=== PATIENT | female | born 1980 | race Two or more races ===

== ENCOUNTER 2017-05-24 16:39 | Emergency (ER) | payer OTHER ==
[~2017-05-24] VITALS: Ht 157.5 cm; Wt 82.2 kg
[~2017-05-24 16:39] MED LIST: ALBU2TAB4 IN; ALBU2TAB4 NEB; LEVO500T21 PO
[2017-05-24 18:03] LABS: Basophils # (auto) 0.1 uL; Basophils % (auto) 0.8 % (0.0-2.0); Eosinophils # (auto) 0.2 uL; Eosinophils % (auto) 1.9 % (0.0-7.0); Hematocrit 40.5 % (36.0-46.0); Hemoglobin 13.7 g/dL (12.2-16.2); Lymphocytes # (auto) 2.3 uL; Lymphocytes % (auto) 23.4 % (10.0-50.0); Mean Corpuscular Hemoglobin 27.5 pg (28.0-32.0); Mean Corpuscular Hgb Conc. 33.9 g/dL (32.0-36.0); Mean Platelet Volume 7.8 fL (6.9-10.8); Monocytes # (auto) 0.5 uL; Monocytes % (auto) 4.9 % (0.0-12.0); Neutrophils # (auto) 6.8 uL; Nucleated Red Blood Cells % 0.1 %; Platelet Count (auto) 300 10^3/uL (140-450); Red Cell Distribution Width 14.4 % (11.8-14.3); White Blood Cell 9.8 10^3/uL (4.4-10.8)
[2017-05-24 18:07] LABS: Chloride 106 mmol/L (98-107); Potassium 3.2 mmol/L (3.5-5.1); Sodium 138 mmol/L (136-145)
[2017-05-24 18:11] LABS: Albumin 3.7 g/dL (3.4-5.0); Anion Gap 7 (5-15); Aspartate Aminotransferase 18 U/L (15-37); BUN/Creatinine Ratio 15.9; Blood Urea Nitrogen 11 mg/dL (7-18); Calcium 8.4 mg/dL (8.5-10.1); Carbon Dioxide 25 mmol/L (21-32); GFR African American 124 mL/min; GFR Non-African American 102 mL/min; Glucose 78 mg/dL (74-106); Magnesium 2.3 mg/dL (1.6-2.6)
[2017-05-24 18:17] LABS: Alkaline Phosphatase 71 U/L (45-117); Bilirubin, Total 0.6 mg/dL (0.2-1.0)
[2017-05-24 18:18] LABS: Total Protein 7.6 g/dL (6.4-8.2)
[2017-05-24 18:21] VITALS: BP 122/86
[2017-05-24] MEDS ORDERED: POTASSIUM CHL 20 Meq TABLET PO ONE (18:45)
== END 2017-05-24 19:28 | disposition home or self-care (01) ==
LOC: ER 16:45
DX: R07.89 Other chest pain (principal); E87.6 Hypokalemia; J45.909 Unspecified asthma, uncomplicated; Z88.6 Allergy status to analgesic agent; Z91.018 Allergy to other foods; Z91.09 Other allergy status, other than to drugs and biological substances
CPT/HCPCS: 36415; 71020; 80053; 83735; 84484; 85025; 93005

== ENCOUNTER 2018-04-15 16:13 | Emergency (ER) | payer MEDICAID ==
[~2018-04-15] VITALS: Ht 160 cm; Wt 76.2 kg
[2018-04-15 16:23] VITALS: BP 137/94
[2018-04-15] MEDS ORDERED: cefTRIAXone SOD 1,000 MG VL IM ONE (17:00)
[2018-04-15] MEDS ORDERED: ALBUTEROL SULF 2.5 MG/0.5ML(0.5%) NEB SOLN NEB ONE (17:00)
[2018-04-15] MEDS ORDERED: IPRATROPIUM BROM 0.5 MG/2.5ML INH SOL NEB ONE (17:00)
[2018-04-15] MEDS ORDERED: methylPREDNISolone SOD SUCC 125 MG/2 ML VL IM ONE (17:00)
== END 2018-04-15 17:51 | disposition home or self-care (01) ==
LOC: ER 16:13
DX: J45.909 Unspecified asthma, uncomplicated (principal); J03.90 Acute tonsillitis, unspecified
CPT/HCPCS: 71046; 94640; 96372; 99284; J0696; J2930; J7611; J7644

== ENCOUNTER 2018-07-05 09:40 | Emergency (ER) | payer MEDICAID ==
[~2018-07-05] VITALS: Ht 157.5 cm; Wt 78.0 kg
[2018-07-05 09:48] VITALS: BP 129/83
[2018-07-05] MEDS ORDERED: IPRATROPIUM BROM 0.5 MG/2.5ML INH SOL NEB ONE (11:45)
[2018-07-05] MEDS ORDERED: ALBUTEROL SULF 2.5 MG/0.5ML(0.5%) NEB SOLN NEB ONE (11:45)
[2018-07-05] MEDS ORDERED: cefTRIAXone SOD 1,000 MG VL IM ONE (11:45)
[2018-07-05] MEDS ORDERED: methylPREDNISolone SOD SUCC 125 MG/2 ML VL IM ONE (11:45)
== END 2018-07-05 12:27 | disposition home or self-care (01) ==
LOC: ER 09:40
DX: J45.901 Unspecified asthma with (acute) exacerbation (principal); J03.90 Acute tonsillitis, unspecified; Z98.51 Tubal ligation status
CPT/HCPCS: 71046; 94640; 96372; 99283; J0696; J2930

== ENCOUNTER 2018-12-10 15:39 | Emergency (ER) | payer MEDICAID ==
[~2018-12-10] VITALS: Ht 157.5 cm; Wt 69.4 kg
[2018-12-10 16:27] VITALS: BP 137/84
[2018-12-10] MEDS ORDERED: KETOROLAC TROMETH 60MG/2ML VIAL IM ONE (17:00)
== END 2018-12-10 17:53 | disposition home or self-care (01) ==
LOC: ER 15:39
DX: M25.531 Pain in right wrist (principal); J45.909 Unspecified asthma, uncomplicated; Z98.51 Tubal ligation status; Z88.8 Allergy status to other drugs, medicaments and biological substances; Z79.899 Other long term (current) drug therapy
CPT/HCPCS: 73110; 96372; 99283; J1885

== ENCOUNTER 2018-12-15 07:39 | Emergency (ER) | payer MEDICAID ==
[~2018-12-15] VITALS: Ht 152.4 cm; Wt 69.4 kg
[2018-12-15 08:07] VITALS: BP 133/86
== END 2018-12-15 09:02 | disposition home or self-care (01) ==
LOC: ER 07:39
DX: J03.90 Acute tonsillitis, unspecified (principal); H60.93 Unspecified otitis externa, bilateral; H61.23 Impacted cerumen, bilateral; J45.909 Unspecified asthma, uncomplicated; Z98.51 Tubal ligation status; Z88.2 Allergy status to sulfonamides; Z88.8 Allergy status to other drugs, medicaments and biological substances

== ENCOUNTER 2019-02-05 12:46 | Emergency (ER) | payer MEDICAID ==
[~2019-02-05] VITALS: Ht 154.9 cm; Wt 71.2 kg
[2019-02-05 13:04] VITALS: BP 128/89
[2019-02-05] MEDS ORDERED: ALBUTEROL SULF 2.5 MG/0.5ML(0.5%) NEB SOLN NEB ONE (15:45)
[2019-02-05] MEDS ORDERED: cefTRIAXone SOD 1,000 MG VL IM ONE (15:45)
[2019-02-05] MEDS ORDERED: IPRATROPIUM BROM 0.5 MG/2.5ML INH SOL NEB ONE (15:45)
== END 2019-02-05 16:31 | disposition home or self-care (01) ==
LOC: ER 12:46
DX: J45.901 Unspecified asthma with (acute) exacerbation (principal); J03.90 Acute tonsillitis, unspecified; Z98.51 Tubal ligation status
CPT/HCPCS: 71046; 94640; 96372; 99283; J0696; J7611; J7644

== ENCOUNTER 2019-07-10 12:13 | Emergency (ER) | payer MEDICAID ==
[~2019-07-10] VITALS: Ht 154.9 cm; Wt 67.6 kg
[2019-07-10] MEDS ORDERED: IPRATROPIUM BROM 0.5 MG/2.5ML INH SOL HHN ONE (12:30)
[2019-07-10] MEDS ORDERED: methylPREDNISolone SOD SUCC 125 MG/2 ML VL IV ONE (12:30)
[2019-07-10] MEDS ORDERED: ALBUTEROL SULF 2.5 MG/0.5ML(0.5%) NEB SOLN HHN ONE (12:30)
[2019-07-10 12:47] VITALS: BP 113/86
[2019-07-10 12:49] LABS: Basophils # (auto) 0.1 uL; Basophils % (auto) 0.8 % (0.0-2.0); Eosinophils # (auto) 0.2 uL; Eosinophils % (auto) 2.3 % (0.0-7.0); Hematocrit 41.8 % (36.0-46.0); Hemoglobin 14.3 g/dL (12.2-16.2); Lymphocytes # (auto) 1.9 uL; Mean Corpuscular Hemoglobin 29.3 pg (28.0-32.0); Mean Corpuscular Hgb Conc. 34.3 g/dL (32.0-36.0); Mean Corpuscular Volume 85.2 fL (80.0-100.0); Monocytes # (auto) 0.5 uL; Neutrophils # (auto) 6.8 uL; Neutrophils % (auto) 71.9 % (37.0-80.0); Platelet Count (auto) 292 10^3/uL (140-450); Red Cell Distribution Width 13.2 % (11.8-14.3); White Blood Cell 9.5 10^3/uL (4.4-10.8)
[2019-07-10 13:10] LABS: Alanine Aminotransferase 14 U/L (13-56); Albumin 3.8 g/dL (3.4-5.0); Anion Gap 6 (5-15); Blood Urea Nitrogen 12 mg/dL (7-18); Calcium 8.7 mg/dL (8.5-10.1); Carbon Dioxide 25 mmol/L (21-32); Chloride 108 mmol/L (98-107); Glucose 87 mg/dL (74-106); Potassium 3.7 mmol/L (3.5-5.1); Sodium 139 mmol/L (136-145)
[2019-07-10 13:15] LABS: Alkaline Phosphatase 54 U/L (45-117); Aspartate Aminotransferase 9 U/L (15-37); BUN/Creatinine Ratio 18.8; Bilirubin, Total 0.6 mg/dL (0.2-1.0); GFR African American 134 mL/min; GFR Non-African American 110 mL/min; Total Protein 7.4 g/dL (6.4-8.2)
== END 2019-07-10 14:43 | disposition home or self-care (01) ==
LOC: ER 12:13
DX: J45.909 Unspecified asthma, uncomplicated (principal)
CPT/HCPCS: 36415; 71045; 80053; 84484; 85025; 93005; 96374; 99284; J2930; J7611; J7644

== ENCOUNTER 2019-07-28 10:59 | Emergency (ER) | payer MEDICAID ==
[~2019-07-28] VITALS: Ht 154.9 cm; Wt 72.1 kg
[2019-07-28] MEDS ORDERED: IPRATROPIUM BROM 0.5 MG/2.5ML INH SOL NEB ONE (11:15)
[2019-07-28] MEDS ORDERED: ALBUTEROL SULF 2.5 MG/0.5ML(0.5%) NEB SOLN NEB ONE (11:15)
[2019-07-28 14:53] VITALS: BP 135/91
== END 2019-07-28 16:12 | disposition home or self-care (01) ==
LOC: ER 10:59
DX: J45.901 Unspecified asthma with (acute) exacerbation (principal); R42 Dizziness and giddiness; R51 Headache
CPT/HCPCS: 71046; 94640; 99283; J7611; J7644

== ENCOUNTER 2019-09-28 08:34 | Emergency (ER) | payer MEDICAID ==
[~2019-09-28] VITALS: Ht 154.9 cm; Wt 72.1 kg
[2019-09-28 09:02] VITALS: BP 140/96
[2019-09-28] MEDS ORDERED: IPRATROPIUM BROM 0.5 MG/2.5ML INH SOL NEB ONE (10:30)
[2019-09-28] MEDS ORDERED: ALBUTEROL SULF 2.5 MG/0.5ML(0.5%) NEB SOLN NEB ONE (10:30)
== END 2019-09-28 11:43 | disposition home or self-care (01) ==
LOC: ER 08:34
DX: J02.9 Acute pharyngitis, unspecified (principal); J45.909 Unspecified asthma, uncomplicated
CPT/HCPCS: 71046; 94640; 99283; J7644

== ENCOUNTER 2019-10-28 08:38 | Emergency (ER) | payer MEDICAID ==
[~2019-10-28] VITALS: Ht 154.9 cm; Wt 70.3 kg
[2019-10-28 09:03] VITALS: BP 141/104
[2019-10-28] MEDS ORDERED: KETOROLAC TROMETH 60MG/2ML VIAL IM ONE (09:30)
== END 2019-10-28 09:44 | disposition home or self-care (01) ==
LOC: ER 08:38
DX: M25.512 Pain in left shoulder (principal); J45.909 Unspecified asthma, uncomplicated; Z79.2 Long term (current) use of antibiotics; Z79.899 Other long term (current) drug therapy; Z88.8 Allergy status to other drugs, medicaments and biological substances; Z91.018 Allergy to other foods
CPT/HCPCS: 99283; J1885; 96372

== ENCOUNTER 2020-01-17 11:02 | Emergency (ER) | payer MEDICAID ==
[~2020-01-17] VITALS: Ht 157.5 cm; Wt 74.8 kg
[2020-01-17 11:13] VITALS: BP 133/90
[2020-01-17] MEDS ORDERED: IBUPROFEN 800 MG TAB PO ONE (12:00)
== END 2020-01-17 12:13 | disposition home or self-care (01) ==
LOC: ER 11:02
DX: S63.501A Unspecified sprain of right wrist, initial encounter (principal); X50.1XXA Overexertion from prolonged static or awkward postures, initial encounter; Y93.89 Activity, other specified; Y92.89 Other specified places as the place of occurrence of the external cause; Y99.8 Other external cause status
CPT/HCPCS: 29125; 73110

== ENCOUNTER 2020-02-26 18:13 | Emergency (ER) | payer MEDICAID ==
[~2020-02-26] VITALS: Ht 157.5 cm; Wt 73.5 kg
[2020-02-26 18:36] VITALS: BP 143/105
[2020-02-26] MEDS ORDERED: methylPREDNISolone SOD SUCC 125 MG/2 ML VL IM ONE (19:45)
[2020-02-26] MEDS ORDERED: ALBUTEROL SULF 2.5 MG/0.5ML(0.5%) NEB SOLN NEB ONE (20:15)
[2020-02-26] MEDS ORDERED: IPRATROPIUM BROM 0.5 MG/2.5ML INH SOL NEB ONE (20:15)
== END 2020-02-26 21:31 | disposition home or self-care (01) ==
LOC: ER 18:13
DX: H66.92 Otitis media, unspecified, left ear (principal); J45.901 Unspecified asthma with (acute) exacerbation; Z88.8 Allergy status to other drugs, medicaments and biological substances
CPT/HCPCS: 94640; 96372; 99283; J2930; J7644

== ENCOUNTER 2020-05-30 14:47 | Emergency (ER) | payer MEDICAID ==
[~2020-05-30] VITALS: Ht 157.5 cm; Wt 75.7 kg
[2020-05-30 14:48] VITALS: BP 105/81
== END 2020-05-30 16:24 | disposition home or self-care (01) ==
LOC: ER 14:47
DX: J45.909 Unspecified asthma, uncomplicated (principal); Z20.828 Contact with and (suspected) exposure to other viral communicable diseases; Z98.51 Tubal ligation status
CPT/HCPCS: 36415; 71045; 87426

== ENCOUNTER 2020-12-06 08:57 | Emergency (ER) | payer MEDICAID ==
[~2020-12-06] VITALS: Ht 160 cm; Wt 75.7 kg
[~2020-12-06 08:57] MED LIST changes: -LEVO500T21 PO; +LEVO500T31 PO
[2020-12-06] MEDS ORDERED: ALBUTEROL SULF 2.5 MG/0.5ML(0.5%) NEB SOLN HHN STA (09:22)
[2020-12-06] MEDS ORDERED: IPRATROPIUM BROM 0.5 MG/2.5ML INH SOL NEB ONE (09:30)
[2020-12-06 10:05] VITALS: BP 127/76
[2020-12-06] MEDS ORDERED: methylPREDNISolone SOD SUCC 125 MG/2 ML VL IM ONE (10:45)
== END 2020-12-06 11:22 | disposition home or self-care (01) ==
LOC: ER 08:57
DX: J45.901 Unspecified asthma with (acute) exacerbation (principal)
CPT/HCPCS: 94640; 96372; 99283; J2930; J7644

== ENCOUNTER 2021-04-16 08:35 | Emergency (ER) | payer MEDICAID ==
[2021-04-16] MEDS ORDERED: ALBUTEROL SULF 2.5 MG/0.5ML(0.5%) NEB SOLN NEB ONE (08:45)
[2021-04-16] MEDS ORDERED: IPRATROPIUM BROM 0.5 MG/2.5ML INH SOL NEB ONE (08:45)
[2021-04-16] MEDS ORDERED: methylPREDNISolone SOD SUCC 125 MG/2 ML VL IM ONE (09:30)
[2021-04-16 09:47] VITALS: BP 143/101
== END 2021-04-16 09:48 | disposition home or self-care (01) ==
LOC: ER 08:35
DX: J45.901 Unspecified asthma with (acute) exacerbation (principal)
CPT/HCPCS: 94640; 96372; 99283; J2930; J7644

== ENCOUNTER 2021-09-27 10:03 | Emergency (ER) | payer MEDICAID ==
[~2021-09-27] VITALS: Ht 157.5 cm; Wt 75.7 kg
[2021-09-27] MEDS ORDERED: ALBUTEROL SULF 2.5 MG/0.5ML(0.5%) NEB SOLN NEB ONE ×2 (10:30→12:45)
[2021-09-27] MEDS ORDERED: methylPREDNISolone SOD SUCC 125 MG/2 ML VL IV ONE (10:30)
[2021-09-27] MEDS ORDERED: IPRATROPIUM BROM 0.5 MG/2.5ML INH SOL NEB ONE (10:30)
[2021-09-27 12:59] VITALS: BP 137/89
[2021-09-27] MEDS ORDERED: LEVO-28 PO (13:49)
[2021-09-27] MEDS ORDERED: METH4PAK PO (13:49)
== END 2021-09-27 13:16 | disposition home or self-care (01) ==
LOC: ER 10:03
DX: J45.901 Unspecified asthma with (acute) exacerbation (principal); Z20.822 Contact with and (suspected) exposure to COVID-19
CPT/HCPCS: 36415; 71046; 87426; 93005; 94640; 96374; 99285; J2930; J7644

== ENCOUNTER 2022-05-29 09:47 | Emergency (ER) | payer MEDICAID ==
[~2022-05-29] VITALS: Ht 157.5 cm; Wt 80.9 kg
[2022-05-29 09:47] VITALS: BP 135/97
[~2022-05-29 09:47] MED LIST changes: +ALBUAER3 IN; +LEVO-28 PO; +METH4PAK PO; +PRED20TA2 PO
[2022-05-29] MEDS ORDERED: IPRATROPIUM BROM 0.5 MG/2.5ML INH SOL NEB ONE (10:00)
[2022-05-29] MEDS ORDERED: ALBUTEROL SULF 2.5 MG/0.5ML(0.5%) NEB SOLN NEB ONE (10:00)
[2022-05-29] MEDS ORDERED: METH4PAK PO (10:51)
== END 2022-05-29 13:48 | disposition home or self-care (01) ==
LOC: ER 09:47
DX: J45.901 Unspecified asthma with (acute) exacerbation (principal); Z20.822 Contact with and (suspected) exposure to COVID-19; Z98.51 Tubal ligation status
CPT/HCPCS: 36415; 71045; 87426; 87804; 94640; 99284; J7644

== ENCOUNTER 2023-04-20 08:40 | Inpatient (IN) | payer MEDICAID ==
[~2023-04-20] VITALS: Ht 157.5 cm; Wt 78.6 kg
[~2023-04-20 08:40] MED LIST changes: +ALBU2TAB11 IN; +ALBU2TAB11 NEB; -ALBU2TAB4 IN; -ALBU2TAB4 NEB; +AZIT1POW PO; -LEVO-28 PO; +LEVO500T91 PO; +PROM1SOL4 PO
[2023-04-20] MEDS ORDERED: ALBUTEROL SULF 2.5 MG/0.5ML(0.5%) NEB SOLN NEB ONE (09:00)
[2023-04-20] MEDS ORDERED: IPRATROPIUM BROM 0.5 MG/2.5ML INH SOL NEB ONE (09:00)
[2023-04-20] MEDS ORDERED: methylPREDNISolone SOD SUCC 40 MG/ML VL IV ONE (09:00)
[2023-04-20 09:03] VITALS: BP 142/91
[2023-04-20 10:33] LABS: Basophils # (auto) 0.1 10 ^3/uL (0-0.2); Basophils % (auto) 0.9 % (0.0-2.0); Eosinophils # (auto) 0.3 10 ^3/uL (0-0.8); Eosinophils % (auto) 3.7 % (0.0-7.0); Hematocrit 44.8 % (36.0-46.0); Hemoglobin 15.1 g/dL (12.2-16.2); Lymphocytes # (auto) 1.9 10 ^3/uL (0.4-5.4); Lymphocytes % (auto) 23.6 % (10.0-50.0); Mean Corpuscular Hemoglobin 28.3 pg (28.0-32.0); Mean Corpuscular Hgb Conc. 33.7 g/dL (32.0-36.0); Monocytes # (auto) 0.5 10 ^3/uL (0-1.3); Monocytes % (auto) 6.4 % (0.0-12.0); Neutrophils # (auto) 5.2 10 ^3/uL (1.6-8.6); Neutrophils % (auto) 65.4 % (37.0-80.0); Nucleated Red Blood Cells % 0.2 %; Red Blood Cells 5.34 10^6/uL (4.0-5.20); Red Cell Distribution Width 14.5 % (11.8-14.3); White Blood Cell 7.9 10^3/uL (4.4-10.8)
[2023-04-20 10:34] LABS: Alanine Aminotransferase 15 U/L (7-40); Albumin 4.4 g/dL (3.2-4.8); Alkaline Phosphatase 53 U/L (46-116); Anion Gap 7 (5-15); Aspartate Aminotransferase 9 U/L (13-40); BUN/Creatinine Ratio 10.3 (10.0-20.0); Bilirubin, Total 1.1 mg/dL (0.2-1.0); Blood Urea Nitrogen 7 mg/dL (9-23); Carbon Dioxide 24 mmol/L (20-30); Chloride 108 mmol/L (98-107); Glucose 90 mg/dL (74-106); Potassium 4.2 mmol/L (3.5-5.1); Sodium 139 mmol/L (136-145)
[2023-04-20] MEDS ORDERED: ONDANSETRON HCL 4 MG/2 ML VIAL IV PRN (15:15)
[2023-04-20] MEDS ORDERED: MORPHINE SULFATE INJ 2 MG/ml SYRG IV PRN (15:15)
[2023-04-20] MEDS ORDERED: DOCUSATE SOD 100 MG CAP PO PRN (15:15)
[2023-04-20] MEDS ORDERED: SODIUM CHLORIDE 0.9% 1,000 ML IV SCH (15:15)
[2023-04-20 15:32] VITALS: PULSE 88; RESP 20; TEMP 98.4; O2SAT 94
[2023-04-20] MEDS ORDERED: IPRATROPIUM BROM 0.5 MG/2.5ML INH SOL NEB SCH (18:00)
[2023-04-20] MEDS ORDERED: ALBUTEROL SULF 2.5 MG/0.5ML(0.5%) NEB SOLN NEB SCH (18:00)
[2023-04-20] MEDS ORDERED: methylPREDNISolone SOD SUCC 40 MG/ML VL IV SCH (22:00)
== END 2023-04-20 21:27 | disposition left against medical advice (07) | DRG 141 ==
LOC: ER 08:40 → OVERFLOW 15:15
PROVIDERS: ADMIT Nurse Practitioner Family; ATTEND Nurse Practitioner Family
DX: J45.901 Unspecified asthma with (acute) exacerbation (principal); E66.9 Obesity, unspecified; Z68.31 Body mass index [BMI] 31.0-31.9, adult; Z80.9 Family history of malignant neoplasm, unspecified; Z88.8 Allergy status to other drugs, medicaments and biological substances; Z53.21 Procedure and treatment not carried out due to patient leaving prior to being seen by health care provider; Z98.51 Tubal ligation status
CPT/HCPCS: 36415; 71045; 80053; 84484; 84702; 85025; 85379; 94640; 99291; G0378

== ENCOUNTER 2024-07-04 12:38 | Emergency (ER) | payer MEDICAID ==
[~2024-07-04] VITALS: Ht 157.5 cm; Wt 80.9 kg
[~2024-07-04 12:38] MED LIST changes: +BUDE1AER4 IN
[2024-07-04] MEDS: DexAMETHasone 4 MG TAB PO ONE (13:08)
[2024-07-04 13:14] VITALS: PULSE 88
[2024-07-04] MEDS: IPRATROPIUM BROM 0.5 MG/2.5ML INH SOL NEB ONE (13:24)
[2024-07-04] MEDS: ALBUTEROL SULF 2.5 MG/0.5ML(0.5%) NEB SOLN NEB ONE (13:24)
[2024-07-04 13:46] VITALS: BP 132/90; RESP 18; O2SAT 98
[2024-07-04] MEDS: ACETAMINOPHEN 500 MG TAB or CAP PO ONE (13:49)
--- NOTE | 2024-07-04 14:35 | ED.PDOC ---
SOB-HPI HPI Comments 44y F who presents to the ED for chief complaint of shortness of breath. Pt stats she has been having shortness of breath for the past 1 hours getting progressively worse. Pt states she used nebulizer and albuterol inhaler at home prior to ED arrival. Pt otherwise denies any recent sick contacts. Pt in the ED, has temp of 98.7 F and 02 sat of 98% on room air with no noted respiratory distress. Pt otherwise denies any other symptoms at this time. 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 Family History Family History: Family hx of Cancer Social History Smoker: Non-Smoker Alcohol: Denies ETOH Use Drugs: Denies Drug Use Lives In: Home Constitutional: denies: chills, diaphoresis, fatigue, fever, malaise, sweats, weakness, others EENTM: denies: blurred vision, double vision, ear bleeding, ear discharge, ear drainage, ear pain, ear ringing, eye pain, eye redness, hearing loss, mouth pain, mouth swelling, nasal discharge, nose bleeding, nose congestion, nose pain, photophobia, tearing, throat pain, throat swelling, voice changes, others Respiratory: reports: shortness of breath, wheezing; denies: cough, hemoptysis, orthopnea, SOB at rest, SOB with excertion, stridor, others Cardiovascular: denies: chest pain, dizzy spells, diaphoresis, Dyspnea on exertion, edema, irregular heart beat, left arm pain, lightheadedness, palpitations, PND, syncope, others Gastrointestinal: denies: abdomen distended, abdominal pain, blood streaked bowels, constipated, diarrhea, dysphagia, difficulty swallowing, hematemesis, melena, nausea, poor appetite, poor fluid intake, rectal bleeding, rectal pain, vomiting, others Genitourinary: denies: abnormal vagina bleeding, burning, dyspareunia, dysuria, flank pain, frequency, hematuria, incontinence, pain, , vagina discharge, urgency, others Neurological: denies: dizziness, fainting, headache, left sided numbness, left sided weakness, numbness, paresthesia, pre-existing deficit, right sided numbness, right sided weakness, seizure, speech problems, tingling, tremors, weakness, others Musculoskeletal: denies: back pain, gout, joint pain, joint swelling, muscle pain, muscle stiffness, neck pain, others Integumetry: denies: bruises, change in color, change in hair/nails, dryness, laceration, lesions, lumps, rash, wounds, others Allergic/Immunocompromised: denies: Difficulty Healing, Frequent Infections, Hives, Itching, others Hematologic/Lymphatic: denies: anemia, blood clots, easy bleeding, easy bruising, swollen glands, others Endocrine: denies: excessive hunger, excessive sweating, excessive thirst, excessive urination, flushing, intolerance to cold, intolerance to heat, unexplained weight gain, unexplained weight loss, others Psychiatric: denies: anxiety, bipolar disorder, depression, hopeless, panic disorder, schizophrenia, sleepless, suicidal, others All Other Systems: Reviewed and Negative Physical Exam General Appearance: No Apparent Distress, Normal HEENT: Normal ENT Inspection, Pharynx Normal, TMs Normal Neck: Full Range of Motion, Non-Tender, Normal, Normal Inspection Respiratory: Wheezing (bilateral lobes, ), Other (pt speaking in full sentences ,) Cardiovascular: No Edema, No JVD, No Murmur, No Gallop, Normal Peripheral Pulses, Regular Rate/Rhythm Breast Exam: Deferred Gastrointestinal: No Organomegaly, Non Tender, No Pulsatile Mass, Normal Bowel Sounds, Soft Genitalia: Deferred Pelvic: Deferred Rectal: Deferred Extremities: No calf tenderness, Normal capillary refill, Normal inspection, Normal range of motion, Non-tender, No pedal edema Musculoskeletal : Apperance: Normal Neurologic: Alert, christmas tree grader II-XII nml as Tested, No Motor Deficits, Normal Affect, Normal Mood, No Sensory Deficits Cerebellar Function: Normal Reflexes: Normal Skin: Dry, Normal Color, Warm Lymphatic: No Adenopathy Was a procedure done? Was a procedure done?: No Differential Dx Differential Diagnosis: Asthma, Bronchitis, Pneumonia, Pulmonary Embolism, Respiratory Distress, Pharyngitis, URI X-Ray, Labs, Meds, VS Vital Signs Date Time Temp Pulse Resp B/P (MAP) Pulse Ox O2 Delivery O2 Flow Rate FiO2 07/04/24 13:46 18 132/90 (104) 98 07/04/24 13:27 20 97 Room Air* 0 21 07/04/24 13:14 98.7 88 17 137/97 (110) 95 98.7 07/04/24 13:14 88 17 95 Room Air 07/04/24 12:51 20 98 Room Air* 0 07/04/24 12:46 98.7 85 20 157/106 (123) 98 Current Medications Medications (Trade) Dose Ordered Sig/Charles Route Start Time Stop Time Status Last Admin Albuterol (Ventolin Medneb) 10 mg ONCE ONCE NEB 07/04/24 13:00 07/04/24 13:01 DC 07/04/24 13:24 Ipratropium Enderlin (Atrovent Medneb) 0.5 mg ONCE ONCE NEB 07/04/24 13:00 07/04/24 13:01 DC 07/04/24 13:24 Dexamethasone (Decadron Tablet) 6 mg ONCE ONCE PO 07/04/24 13:00 07/04/24 13:01 DC 07/04/24 13:08 Acetaminophen (Tylenol Tablet Or Capsule) 1,000 mg ONCE ONCE PO 07/04/24 13:45 07/04/24 13:47 DC 07/04/24 13:49 Time of 1ST Reevaluation: 15:00 Reevaluation 1ST: Unchanged Patient Education/Counseling: Diagnosis, Treatment Family Education/Counseling: No Family Present Departure 1 Departure Time of Disposition: 15:03 Impression: Primary Impression: Acute asthma Disposition: 01 HOME / SELF CARE / HOMELESS Condition: Good e-Prescriptions Prednisone (Prednisone) 20 Mg Tab 20 MG PO DAILY for 5 Days, #5 TAB Prov: TIFFANIE LOPEZ MD 07/04/24 Discharged With: Self Critical Care Note Critical Care Time?: No Stability Stability form required: No Heart Score Heart Score: Heart Score Response (Comments) Value History N/A 0 EKG N/A 0 Age N/A 0 Risk Factors N/A 0 Troponin N/A 0 Total 0 I personally scribed for TIFFANIE LOPEZ MD ([facility]) on 07/04/24 at 14:35. Electronically submitted by Ashlyn Thomas ([facility]). TIFFANIE LOPEZ MD Jul 04, 2024 14:35
[2024-07-04] MEDS ORDERED: PRED20TA2 PO (15:03)
[2024-07-04 15:17] VITALS: TEMP 98.1
== END 2024-07-04 15:18 | disposition home or self-care (01) ==
LOC: ER 12:38
DX: J45.909 Unspecified asthma, uncomplicated (principal); Z98.890 Other specified postprocedural states
CPT/HCPCS: 94640; 99283; J8540

== ENCOUNTER 2024-12-25 22:36 | Emergency (ER) | payer MEDICAID ==
[~2024-12-25] VITALS: Ht 157.5 cm; Wt 76.0 kg
[2024-12-25 22:44] VITALS: BP 152/86; RESP 20; TEMP 98.6; O2SAT 98
[2024-12-25] MEDS: ALPRAZolam 0.5 MG TAB PO ONE (22:45)
--- NOTE | 2024-12-25 22:51 | ED.PDOC ---
History of Present Illness HPI Comments 44-year-old female who came to ER via EMS for syncope. Patient was having a disagreement with family members earlier, when she felt her face become numb, she felt dizzy, and she had a syncopal attack. Denies any prior history of syncopal attacks. She does have a history of anxiety but does not take any medications. Patient appears emotional at time of evaluation. Patient was tachycardic and hypertensive at arrival. Chief Complaint: Syncope Time Seen by MD: 22:51 Primary Care Provider: Brina Reviewed Notes: Targeteer Notes Allergies: Coded Allergies: Alprazolam (Verified Allergy, Severe, 11/29/16) Fluticasone (Verified Allergy, Severe, 11/29/16) Montelukast (Verified Allergy, Severe, 11/29/16) Salmeterol (Verified Allergy, Severe, 11/29/16) Uncoded Allergies: CELERY (Adverse Reaction, Severe, 11/30/16) NUTS (Adverse Reaction, Severe, 11/30/16) Home Meds Active Scripts Prednisone (Prednisone) 20 Mg Tab, 20 MG PO DAILY for 5 Days, #5 TAB Prov:TIFFANIE LOPEZ MD 07/04/24 Budesonide-Formoterol Fumarate (Budesonide/Formoterol Fum 160-4.5 Mcg/Act) 1 Aer Aer, 2 AER IN BID, #1 AER Prov:BELINDA BURNHAM PAC 07/12/23 Methylprednisolone (Medrol Dosepak) 4 Mg Artemio, 4 MG PO UD, #21 TAB UAD Prov:DOMINIQUE HALL MD 02/09/23 Azithromycin (Zithromax) 1 Gm Pow, 1 PACK PO ONCE, #1 PACK Prov:DOMINIQUE HALL MD 02/09/23 Promethazine-Dm (Promethazine Dm 6.25-15 mg/5Ml) 1 Garima Garima, 5 ML PO TID, #150 ML Prov:KAILA RITTER 07/07/22 Prednisone (Prednisone) 20 Mg Tab, 60 MG PO DAILY, #15 MG Prov:KAILA RITTER 07/07/22 Methylprednisolone (Medrol Dosepak) 4 Mg Artemio, 4 MG PO UD, #21 TAB UAD Prov:DOMINIQUE HALL MD 05/29/22 Albuterol Sulfate (VENTOLIN MDI) 90 Mcg Ih, 90 MCG IN Q6HP PRN for 5 Days, #1 MCG Prov:SOLIS FERNANDO MD 05/04/22 Prednisone (Prednisone) 20 Mg Tab, 20 MG PO BS for 5 Days, #5 MG Prov:SOLIS FERNANDO MD 05/04/22 Levofloxacin Hemihydrate (LEVOFLOXACIN) 500 Mg Tab, 500 MG PO DAILY for 7 Days, #7 MG Prov:SOLIS FERNANDO MD 09/27/21 Methylprednisolone (Medrol Dosepak) 4 Mg Artemio, 4 MG PO UD for 7 Days, #7 TAB UAD Prov:SOLIS FERNANDO MD 09/27/21 Levofloxacin (Levaquin) 500 Mg Tab, 500 MG PO DAILY, #5 TAB Prov:MALLORIE LEE MD 11/30/16 Reported Medications Albuterol Sulfate (Albuterol Sulfate) 2 Mg Tab, NEB, MG 11/30/16 Albuterol Sulfate (Albuterol Sulfate) 2 Mg Tab, IN, MG 11/30/16 Information Source: Patient Mode of Arrival: EMS Severity: Moderate Timing: Minutes Duration: Since onset Prehospital treatment: None Past Medical History PAST MEDICAL HISTORY: Anxiety, Asthma Surgical History: BTL, [employer]ER History: Denies all [employer]ULES FOOTB[employer]ER Hx Family History Family History: Family hx of Cancer Social History Smoker: Non-Smoker Alcohol: Denies ETOH Use Drugs: Denies Drug Use Lives In: Home Constitutional: denies: chills, diaphoresis, fatigue, fever, malaise, sweats, weakness, others EENTM: denies: blurred vision, double vision, ear bleeding, ear discharge, ear drainage, ear pain, ear ringing, eye pain, eye redness, hearing loss, mouth pain, mouth swelling, nasal discharge, nose bleeding, nose congestion, nose pain, photophobia, tearing, throat pain, throat swelling, voice changes, others Respiratory: denies: cough, hemoptysis, orthopnea, SOB at rest, shortness of breath, SOB with excertion, stridor, wheezing, others Cardiovascular: denies: chest pain, dizzy spells, diaphoresis, Dyspnea on exertion, edema, irregular heart beat, left arm pain, lightheadedness, palpitations, PND, syncope, others Gastrointestinal: denies: abdomen distended, abdominal pain, blood streaked bowels, constipated, diarrhea, dysphagia, difficulty swallowing, hematemesis, melena, nausea, poor appetite, poor fluid intake, rectal bleeding, rectal pain, vomiting, others Genitourinary: denies: abnormal vagina bleeding, burning, dyspareunia, dysuria, flank pain, frequency, hematuria, incontinence, pain, , vagina discharge, urgency, others Neurological: reports: dizziness, fainting, others (Facial numbness); denies: headache, left sided numbness, left sided weakness, numbness, paresthesia, pre- existing deficit, right sided numbness, right sided weakness, seizure, speech problems, tingling, tremors, weakness Musculoskeletal: denies: back pain, gout, joint pain, joint swelling, muscle pain, muscle stiffness, neck pain, others Integumetry: denies: bruises, change in color, change in hair/nails, dryness, laceration, lesions, lumps, rash, wounds, others Allergic/Immunocompromised: denies: Difficulty Healing, Frequent Infections, Hives, Itching, others Hematologic/Lymphatic: denies: anemia, blood clots, easy bleeding, easy bruising, swollen glands, others Endocrine: denies: excessive hunger, excessive sweating, excessive thirst, excessive urination, flushing, intolerance to cold, intolerance to heat, unexplained weight gain, unexplained weight loss, others Psychiatric: reports: anxiety; denies: bipolar disorder, depression, hopeless, panic disorder, schizophrenia, sleepless, suicidal, others Physical Exam General Appearance: Moderate Distress (Patient was tearful and displaying signs of significant anxiety at time of evaluation.), Normal HEENT: Normal ENT Inspection, Pharynx Normal, TMs Normal Neck: Full Range of Motion, Non-Tender, Normal, Normal Inspection Respiratory: Chest Non-Tender, Lungs Clear, No Accessory Muscle Use, No Respiratory Distress, Normal Breath Sounds Cardiovascular: No Edema, No JVD, No Murmur, No Gallop, Normal Peripheral Pulses, Regular Rate/Rhythm Breast Exam: Deferred Gastrointestinal: No Organomegaly, Non Tender, No Pulsatile Mass, Normal Bowel Sounds, Soft Genitalia: Deferred Pelvic: Deferred Rectal: Deferred Extremities: No calf tenderness, Normal capillary refill, Normal inspection, Normal range of motion, Non-tender, No pedal edema Musculoskeletal : Apperance: Normal Neurologic: Alert, No Motor Deficits, Normal Affect, Normal Mood, No Sensory Deficits Cerebellar Function: Normal Reflexes: Normal Skin: Dry, Normal Color, Warm Lymphatic: No Adenopathy Was a procedure done? Was a procedure done?: No Differential Dx Considerations may include: Anemia, electrolyte imbalance, anxiety, syncope, head injury X-Ray, Labs, Meds, VS Vital Signs Date Time Temp Pulse Resp B/P (MAP) Pulse Ox O2 Delivery O2 Flow Rate FiO2 12/25/24 23:16 81 12/25/24 22:44 98.6 101 20 152/86 (108) 98 98.6 Lab Test 12/26/24 01:12 12/25/24 22:56 Range/Units Urine Color Colorless Yellow Urine Clarity Clear Clear Urine pH 5.0 5.0-9.0 Urine Specific [place] 1.007 1.001-1.035 Urine Protein Negative Negative Urine Ketones Negative Negative Urine Blood 2+ H Negative /uL Urine Nitrite Negative Negative Urine Bilirubin Negative Negative Urine Urobilinogen Normal Negative mg/dL Urine Leukocyte Esterase Negative Negative /uL Urine RBC 1 0 - 4 /hpf Urine Microscopic WBC 1 0-5 /HPF Urine Squamous Epithelial Cells Few <5 /hpf Urine Bacteria None seen None Seen /hpf Urine Glucose Normal Normal mg/dL White Blood Count 12.1 H 4.4-10.8 10^3/uL Red Blood Count 5.15 4.0-5.20 10^6/uL Hemoglobin 14.0 12.2-16.2 g/dL Hematocrit 40.9 36.0-46.0 % Mean Corpuscular Volume 79.3 L 80.0-100.0 fL Mean Corpuscular Hemoglobin 27.1 L 28.0-32.0 pg Mean Corpuscular Hemoglobin Concent 34.2 32.0-36.0 g/dL Red Cell Distribution Width 14.8 H 11.8-14.3 % Platelet Count 336 140-450 10^3/uL Mean Platelet Volume 7.7 6.9-10.8 fL Neutrophils (%) (Auto) 66.7 37.0-80.0 % Lymphocytes (%) (Auto) 22.3 10.0-50.0 % Monocytes (%) (Auto) 6.1 0.0-12.0 % Eosinophils (%) (Auto) 4.1 0.0-7.0 % Basophils (%) (Auto) 0.8 0.0-2.0 % Neutrophils # (Auto) 8.1 1.6-8.6 10 ^3/uL Lymphocytes # (Auto) 2.7 0.4-5.4 10 ^3/uL Monocytes # (Auto) 0.7 0-1.3 10 ^3/uL Eosinophils # (Auto) 0.5 0-0.8 10 ^3/uL Basophils # (Auto) 0.1 0-0.2 10 ^3/uL Nucleated Red Blood Cells 0.1 % Sodium Level 140 136-145 mmol/L Potassium Level 3.6 3.5-5.1 mmol/L Chloride Level 107 98-107 mmol/L Carbon Dioxide Level 26 20-31 mmol/L Anion Gap 7 5-15 Blood Urea Nitrogen 13 9-23 mg/dL Creatinine 0.73 0.550-1.02 mg/dL Glomerular Filtration Rate Calc 105 >90 mL/min BUN/Creatinine Ratio 17.8 10.0-20.0 Serum Glucose 114 H 74-106 mg/dL Calcium Level 9.2 8.7-10.4 mg/dL Troponin I High Sensitivity < 3 L </=34 ng/L Current Medications Medications (Trade) Dose Ordered Sig/Charles Route Start Time Stop Time Status Last Admin Lorazepam (Ativan Tablet) 0.5 mg ONCE ONCE PO 12/26/24 00:00 12/26/24 00:01 DC 12/25/24 23:50 X-Ray, Labs, Meds, VS Comment All studies performed the ED were evaluated by me personally. Laboratories studies were unremarkable for any systemic concerns. Patient responded well to medication. I believe the patient had a anxiety event related to her arguments with extended family. Advised patient to follow up with the primary care provider for mental health referral and evaluation. Time of 1ST Reevaluation: 02:31 Reevaluation 1ST: Improved Consultation: PCP, Psychiatry Patient Education/Counseling: Diagnosis, Treatment Family Education/Counseling: Diagnosis, Treatment, No Family Present SEPSIS Sepsis Screen Date sepsis recognized/suspect: Dec 25, 2024 Time Sepsis recognized/suspect: 2240 Recent Procedure: No On Antibiotic Therapy: No Respiratory Rate >20: No Heart Rate >90: Yes Temp<36 C (96.8 F) or >38.3 C: No SBP <90 or MAP <65 mmHG: No New Acute Mental Status Change: No Is the patient on CPAP, BIPAP,: No Physician Orders Electrocardigram (12/25/24 22:43) Vital Signs Date Time Temp Pulse Resp B/P (MAP) Pulse Ox O2 Delivery O2 Flow Rate FiO2 12/25/24 23:16 81 12/25/24 22:44 98.6 101 20 152/86 (108) 98 98.6 Laboratory Tests Test 12/25/24 22:56 White Blood Count 12.1 10^3/uL (4.4-10.8) H Medications Medications Dose Ordered Sig/Charles Route Start Time Stop Time Status Last Admin Dose Admin Lorazepam 0.5 mg ONCE ONCE PO 12/26/24 00:00 12/26/24 00:01 DC 12/25/24 23:50 Departure 1 Departure Time of Disposition: 02:32 Impression: Primary Impression: Anxiety Disposition: 01 HOME / SELF CARE / HOMELESS Condition: Stable Additional Instructions: Advised patient discuss today's visit with the primary care provider. Patient may benefit from a mental health referral and evaluation as she may have anxiety concerns that can be helped. Discharged With: Self, Friend Critical Care Note Critical Care Time?: No Stability Stability form required: No Heart Score Heart Score: Heart Score Response (Comments) Value History N/A 0 EKG N/A 0 Age N/A 0 Risk Factors N/A 0 Troponin N/A 0 Total 0 I personally scribed for BELINDA BURNHAM PAC ([email or web address]) on 12/25/24 at 22:51. Electronically submitted by Den Bullock ([email or web address]). BELINDA BURNHAM PAC Dec 25, 2024 22:51
[2024-12-25 23:09] LABS: Basophils # (auto) 0.1 10 ^3/uL (0-0.2); Basophils % (auto) 0.8 % (0.0-2.0); Eosinophils # (auto) 0.5 10 ^3/uL (0-0.8); Eosinophils % (auto) 4.1 % (0.0-7.0); Hematocrit 40.9 % (36.0-46.0); Lymphocytes # (auto) 2.7 10 ^3/uL (0.4-5.4); Lymphocytes % (auto) 22.3 % (10.0-50.0); Mean Corpuscular Hemoglobin 27.1 pg (28.0-32.0); Mean Corpuscular Hgb Conc. 34.2 g/dL (32.0-36.0); Mean Corpuscular Volume 79.3 fL (80.0-100.0); Monocytes # (auto) 0.7 10 ^3/uL (0-1.3); Monocytes % (auto) 6.1 % (0.0-12.0); Neutrophils # (auto) 8.1 10 ^3/uL (1.6-8.6); Neutrophils % (auto) 66.7 % (37.0-80.0); Nucleated Red Blood Cells % 0.1 %; Platelet Count (auto) 336 10^3/uL (140-450); Red Blood Cells 5.15 10^6/uL (4.0-5.20); Red Cell Distribution Width 14.8 % (11.8-14.3); White Blood Cell 12.1 10^3/uL (4.4-10.8)
[2024-12-25 23:16] VITALS: PULSE 81
[2024-12-25 23:18] LABS: Potassium 3.6 mmol/L (3.5-5.1); Sodium 140 mmol/L (136-145)
[2024-12-25 23:19] LABS: Anion Gap 7 (5-15); Calcium 9.2 mg/dL (8.7-10.4); Carbon Dioxide 26 mmol/L (20-31)
[2024-12-25 23:20] LABS: Chloride 107 mmol/L (98-107)
[2024-12-25 23:24] LABS: BUN/Creatinine Ratio 17.8 (10.0-20.0); Blood Urea Nitrogen 13 mg/dL (9-23)
[2024-12-25 23:26] LABS: Glucose 114 mg/dL (74-106)
[2024-12-25] MEDS: LORazepam 0.5 MG TAB PO ONE (23:50)
[2024-12-26 01:27] LABS: Urine Bacteria None Seen /hpf (None Seen)
[2024-12-26 02:12] LABS: Urine Blood 2+ /uL (Negative); Urine Clarity Clear (Clear); Urine Color Colorless (Yellow); Urine Protein, UAD Negative (Negative); Urine Specific Gravity 1.007 (1.001-1.035); Urine Squamous Epithelial Cell FEW /hpf (<5); Urine Urobilinogen Normal (Negative); Urine WBC 1 /HPF (0-5)
--- NOTE | 2024-12-27 06:34 | ECG ---
[facility] Test Date: 2024-12-25 Test Time: 23:16:36 Pat Name: SHARON PEARL Department: ED Room: Gender: F [employer] Operator: KEVIN : 1980 Requested By: BELINDA BURNHAM Order Number: [id number] Reading MD: Measurements Intervals [place] Rate: 81 P: 62 SD: 149 QRS: -1 QRSD: 82 T: 55 QT: 374 QTc: 434 Interpretive Statements Sinus rhythm Low voltage, precordial leads Consider anterior infarct Please click the below link to view image of tracing.
== END 2024-12-26 04:17 | disposition home or self-care (01) ==
LOC: EDBD 22:36 → ER 22:38
DX: F41.9 Anxiety disorder, unspecified (principal); R55 Syncope and collapse; I10 Essential (primary) hypertension; J45.909 Unspecified asthma, uncomplicated; Z98.51 Tubal ligation status; Z88.8 Allergy status to other drugs, medicaments and biological substances; Z98.890 Other specified postprocedural states
CPT/HCPCS: 36415; 80048; 81001; 82947; 84484; 85025; 93005

== ENCOUNTER 2025-06-02 08:35 | Emergency (ER) | payer MEDICAID ==
[~2025-06-02] VITALS: Ht 154.9 cm; Wt 80.0 kg
--- NOTE | 2025-06-02 08:51 | ED.PDOC ---
SOB-HPI HPI Comments 45y F who presents to the ED for chief complaint of asthma exacerbation. Pt states she has history of asthma and states she felt increased shortness of breath since last night PM. Pt states she tried using her albuterol and nebulizer and states she was still short of breath and came to the ED for evaluation. 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 Family History Family History: Family hx of Cancer Social History Smoker: Non-Smoker Alcohol: Denies ETOH Use Drugs: Denies Drug Use Lives In: Home Constitutional: denies: chills, diaphoresis, fatigue, fever, malaise, sweats, weakness, others EENTM: denies: blurred vision, double vision, ear bleeding, ear discharge, ear drainage, ear pain, ear ringing, eye pain, eye redness, hearing loss, mouth pain, mouth swelling, nasal discharge, nose bleeding, nose congestion, nose pain, photophobia, tearing, throat pain, throat swelling, voice changes, others Respiratory: reports: shortness of breath; denies: cough, hemoptysis, orthopnea, SOB at rest, SOB with excertion, stridor, wheezing, others Cardiovascular: denies: chest pain, dizzy spells, diaphoresis, Dyspnea on exertion, edema, irregular heart beat, left arm pain, lightheadedness, palpitations, PND, syncope, others Gastrointestinal: denies: abdomen distended, abdominal pain, blood streaked bowels, constipated, diarrhea, dysphagia, difficulty swallowing, hematemesis, melena, nausea, poor appetite, poor fluid intake, rectal bleeding, rectal pain, vomiting, others Genitourinary: denies: abnormal vagina bleeding, burning, dyspareunia, dysuria, flank pain, frequency, hematuria, incontinence, pain, , vagina discharge, urgency, others Neurological: denies: dizziness, fainting, headache, left sided numbness, left sided weakness, numbness, paresthesia, pre-existing deficit, right sided numbness, right sided weakness, seizure, speech problems, tingling, tremors, weakness, others Musculoskeletal: denies: back pain, gout, joint pain, joint swelling, muscle pain, muscle stiffness, neck pain, others Integumetry: denies: bruises, change in color, change in hair/nails, dryness, laceration, lesions, lumps, rash, wounds, others Allergic/Immunocompromised: denies: Difficulty Healing, Frequent Infections, H reema, Itching, others Hematologic/Lymphatic: denies: anemia, blood clots, easy bleeding, easy bruising, swollen glands, others Endocrine: denies: excessive hunger, excessive sweating, excessive thirst, excessive urination, flushing, intolerance to cold, intolerance to heat, unexplained weight gain, unexplained weight loss, others Psychiatric: denies: anxiety, bipolar disorder, depression, hopeless, panic disorder, schizophrenia, sleepless, suicidal, others All Other Systems: Reviewed and Negative Physical Exam General Appearance: No Apparent Distress, Normal HEENT: Normal ENT Inspection, Pharynx Normal, TMs Normal Neck: Full Range of Motion, Non-Tender, Normal, Normal Inspection Respiratory: Wheezing (expiratory wheezing to the left anterior chest wall) Cardiovascular: No Edema, No JVD, No Murmur, No Gallop, Normal Peripheral Pulses, Regular Rate/Rhythm Breast Exam: Deferred Gastrointestinal: No Organomegaly, Non Tender, No Pulsatile Mass, Normal Bowel Sounds, Soft Genitalia: Deferred Pelvic: Deferred Rectal: Deferred Extremities: No calf tenderness, Normal capillary refill, Normal inspection, Normal range of motion, Non-tender, No pedal edema Musculoskeletal : Apperance: Normal Neurologic: Alert, computer artist II-XII nml as Tested, No Motor Deficits, Normal Affect, Normal Mood, No Sensory Deficits Cerebellar Function: Normal Reflexes: Normal Skin: Dry, Normal Color, Warm Lymphatic: No Adenopathy Was a procedure done? Was a procedure done?: No Differential Dx Differential Diagnosis: Asthma, Bronchitis, Pneumonia, Respiratory Distress, URI X-Ray, Labs, Meds, VS Vital Signs Date Time Temp Pulse Resp B/P (MAP) Pulse Ox O2 Delivery O2 Flow Rate FiO2 06/02/25 11:13 84 97 Room Air 06/02/25 11:13 98.7 84 16 136/89 (105) 97 98.7 06/02/25 10:00 18 100 Room Air* 0 21 06/02/25 09:12 18 98 Room Air* 0 21 06/02/25 08:36 97.8 90 20 142/[address] [address] Ph: [phone] DIAGNOSTIC IMAGING Diagnostic Imaging Report : [id number] Signed PATIENT: SHARON PEARL ACCT: [id number] UNIT: [id number] : 1980 LOC: ER ROOM / BED: / AGE / SEX: 45 / F ADM STATUS: REG ER SERVICE 0 ORDERING PHYSICIAN: CJ ALCANTARA NP PROCEDURE(s): CXR2 - CHEST TWO VIEWS ROUTINE REASON: asthma/cough ORDER NUMBER(s): [id number], ACCESSION NUMBER(s): [id number] CHEST RADIOGRAPH Indication: asthma/cough Technique: Two views of the chest was obtained. Comparison: XY CHEST TWO VIEWS ROUTINE on DOS: 07/12/23 Findings: No focal consolidation. No significant pleural effusion. No pneumothorax. Stable cardiomediastinal silhouette. IMPRESSION: No acute pulmonary process. ATED BY: TAMI MARTIN MD DICTATED DATE/TIME: 06/02/25919 SIGNED BY: TAMI MARTIN MD SIGNED DATE/TIME: 06/02/25919 CC: X-Ray, Labs, Meds, VS Comment Patient arrives alert and oriented, ABC's intact, afebrile, vital signs stable, saturating well in room air Diagnostic imaging ordered by me and results interpreted by radiology : chest x- ray Patient was given: albuterol, ipratropium, dexamethasone . Tolerated medications with no adverse reaction. History and exam consistent with asthma exacerbation. Based on exam, indication for oral steroids and nebulizer at this time Chest XRAY Normal On reevaluation vital signs and exam reassuring. Lungs clear no wheezing. No labored breathing. No signs of respiratory distress. Pt stable for discharge. Prescription for crutches steroids. Strict return precautions were discussed Patient is stable for discharge at this time. External notes reviewed. Test results and diagnostic imaging interpreted. All diagnostic findings, discharge care, education and instructions provided Follow-up with PCP in 2 to 3 days Patient verbalized understanding and agreed to treatment plan Vital signs stable, afebrile, no acute distress noted Patient ambulatory with strong steady gait Advised to return precautions for any new or worsening symptoms, return to ER immediately for re-evaluation Patient is aware that the purpose of this visit was for an acute medical emergency requiring emergent stabilization. Chronic conditions, including malignancies have not been ruled out. Patient is instructed to follow up with PCP as directed and discharge instructions for continued care and workup. If unable to arrange follow-up, patient is to return to the emergency department for reassessment. Patient (parent or legal guardian if applicable) was given verbal and written discharge instructions and acknowledges understanding. Additional MDM Review of External, Non-ED records: External records reviewed. Discussion with independent historian (EMS, family) history obtained from the patient/parents (if applicable) at bedside Chronic conditions affecting care: None Social determinants of health affecting care: None Consideration of admission (observation or admission): I considered escalation of care to admission for this patient, however given the reassuring workup, the patient is safe for outpatient management. Discussion with the Radiology: No Tests considered but not performed: Prescription medication considered but not given: 12 lead EKG interpretation: Time of 1ST Reevaluation: 09:30 Reevaluation 1ST: Unchanged Patient Education/Counseling: Diagnosis, Treatment Family Education/Counseling: No Family Present SEPSIS Sepsis Screen Date sepsis recognized/suspect: Jun 02, 2025 Time Sepsis recognized/suspect: 837 Recent Procedure: No On Antibiotic Therapy: No Respiratory Rate >20: No Heart Rate >90: No Temp<36 C (96.8 F) or >38.3 C: No SBP <90 or MAP <65 mmHG: No New Acute Mental Status Change: No Is the patient on CPAP, BIPAP,: No Physician Orders Chest Two Views Routine (06/02/25 08:51) Ipratropium Medneb (Atrovent Medneb) (06/02/25 09:02) Vital Signs Date Time Temp Pulse Resp B/P (MAP) Pulse Ox O2 Delivery O2 Flow Rate FiO2 06/02/25 11:13 84 97 Room Air 06/02/25 11:13 98.7 84 16 136/89 (105) 97 98.7 06/02/25 10:00 18 100 Room Air* 0 21 06/02/25 09:12 18 98 Room Air* 0 21 06/02/25 08:36 97.8 90 20 142/98 95 97.8 Departure 1 Departure Time of Disposition: 11:07 Impression: Primary Impression: Acute asthma exacerbation Qualified Codes: J45.21 - Mild intermittent asthma with (acute) exacerbation Disposition: HOME / SELF CARE / HOMELESS Condition: Stable e-Prescriptions Prednisone (Prednisone) 20 Mg Tab 40 MG PO DAILY for 5 Days, #10 TAB 0 Refills Prov: CJ ALCANTARA NP 06/02/25 Discharged With: Self Critical Care Note Critical Care Time?: No Stability Stability form required: No Heart Score Heart Score: Heart Score Response (Comments) Value History N/A 0 EKG N/A 0 Age N/A 0 Risk Factors N/A 0 Troponin N/A 0 Total 0 I personally scribed for CJ ALCANTARA NP ([email or web address]) on 06/02/25 at 08:51. Electronically submitted by Ashlyn Thomas ([email or web address]). I personally scribed for CJ ALCANTARA NP (FELECIA) on 06/02/25 at 08:56. Electronically submitted by Ashlyn Thomas ([email or web address]). I personally scribed for CJ ALCANTARA NP (MINEOMA) on 06/02/25 at 08:59. Electronically submitted by Ashlyn Thomas ([email or web address]). I personally scribed for CJ ALCANTARA NP (MINEOMA) on 06/02/25 at 09:31. Electronically submitted by Ashlyn Thomas ([email or web address]). CJ ALCANTARA NP Jun 02, 2025 08:51
[2025-06-02] MEDS: IPRATROPIUM BROM 0.5 MG/2.5ML INH SOL NEB ONE ×2 (09:11→09:59)
[2025-06-02] MEDS: ALBUTEROL SULF 2.5 MG/0.5ML(0.5%) NEB SOLN NEB ONE ×2 (09:11→09:59)
--- NOTE | 2025-06-02 09:23 | DVH ---
CHEST RADIOGRAPH Indication: asthma/cough Technique: Two views of the chest was obtained. Comparison: XY CHEST TWO VIEWS ROUTINE on DOS: 07/12/23 Findings: No focal consolidation. No significant pleural effusion. No pneumothorax. Stable cardiomediastinal silhouette. IMPRESSION: No acute pulmonary process.
[2025-06-02] MEDS: IPRATROPIUM BROM 0.5 MG/2.5ML INH SOL ONE (09:31)
[2025-06-02] MEDS: ALBUTEROL SULF 2.5 MG/0.5ML(0.5%) NEB SOLN ONE (09:31)
[2025-06-02] MEDS ORDERED: PRED20TA2 PO (11:07)
[2025-06-02 11:13] VITALS: BP 136/89; PULSE 84; RESP 16; TEMP 98.7; O2SAT 97
== END 2025-06-02 11:16 | disposition home or self-care (01) ==
LOC: ER 08:35
DX: J45.901 Unspecified asthma with (acute) exacerbation (principal); Z98.51 Tubal ligation status
CPT/HCPCS: 71046; 94640; 96372; 99284; J1100